=== PATIENT | female | born 1955 | race Caucasian/White ===

== ENCOUNTER → 2016-10-20 | Outpatient (CLI) | payer BC, OTHER ==
[~2016-10-20] MED LIST: LRT5 PO; METO50TA7 PO
== END | disposition home or self-care (01) ==
LOC: C.PAPS 17:20
PROVIDERS: ATTEND Obstetrics & Gynecology
DX: Z01.419 Encounter for gynecological examination (general) (routine) without abnormal findings (principal)

== ENCOUNTER → 2016-10-29 | Outpatient (CLI) | payer OTHER ==
--- NOTE | 2016-11-01 07:43 | MAMMOGRAPHY REPORT ---
BILATERAL DIGITAL SCREENING MAMMOGRAM TOMOSYNTHESIS WITH CAD: 10/29/2016 CLINICAL HISTORY: Routine screening. Patient has no complaints. TECHNIQUE: Breast tomosynthesis in addition to standard 2D mammography was performed. Current study was also evaluated with a Computer Aided Detection (CAD) system. COMPARISON: Comparison is made to exams dated: 10/24/2015 mammogram, 10/18/2014 mammogram, 10/12/2013 m ammogram, 09/29/2012 mammogram, 09/24/2011 mammogram, and 09/18/2010 mammogram - [facility] enter. BREAST COMPOSITION: There are scattered areas of fibroglandular density in both breasts. FINDINGS: No suspicious masses, calcifications, or areas of architectural distortion are noted in ei ther breast. There has been no significant interval change compared to prior exams. IMPRESSION: ACR BI-RADS CATEGORY 1: NEGATIVE There is no mammographic evidence of malignancy. A 1 year screening mammogram is recommended. The pa tient will receive written notification of the results. Approximately 10% of breast cancers are not detected with mammography. A negative mammographic report should not delay biopsy if a clinically suggestive mass is present. Ava Shen M.D. /:10/29/2016 15:13:12 Director Of Employee Development: Veronica Fowler [facility] letter sent: Normal 1/2 BI-RADS Code: ACR BI-RADS Category 1: Negative
== END | disposition home or self-care (01) ==
LOC: C.MAMM 11:45
PROVIDERS: ATTEND Obstetrics & Gynecology
DX: Z12.31 Encounter for screening mammogram for malignant neoplasm of breast (principal)

== ENCOUNTER → 2017-10-24 | Outpatient (CLI) | payer OTHER ==
[~2017-10-24] MED LIST changes: -METO50TA7 PO; +METO50TA8 PO
== END | disposition home or self-care (01) ==
LOC: C.PAPS 14:41
PROVIDERS: ATTEND Obstetrics & Gynecology
DX: Z12.4 Encounter for screening for malignant neoplasm of cervix (principal)

== ENCOUNTER → 2017-11-04 | Outpatient (CLI) | payer OTHER ==
--- NOTE | 2017-11-04 14:35 | MAMMOGRAPHY REPORT ---
BILATERAL DIGITAL SCREENING MAMMOGRAM TOMOSYNTHESIS WITH CAD: 11/04/2017 CLINICAL HISTORY: Routine screening. Patient has no complaints. TECHNIQUE: The study was acquired using full field digital technology and interpreted from soft copy. Breast tomosynthesis in addition to standard 2D mammography was performed. Current study was also ev aluated with a Computer Aided Detection (CAD) system. COMPARISON: Comparison is made to exams dated: 10/29/2016 mammogram, 10/24/2015 mammogram, 10/18/2014 m ammogram, 10/12/2013 mammogram, 09/29/2012 mammogram, and 09/24/2011 mammogram - [facility] enter. BREAST COMPOSITION: There are scattered areas of fibroglandular density in both breasts. FINDINGS: No suspicious masses, calcifications, or areas of architectural distortion are noted in either breast . There has been no significant interval change compared to prior exams. IMPRESSION: ACR BI-RADS CATEGORY 1: NEGATIVE There is no mammographic evidence of malignancy. A 1 year screening mammogram is recommended.( 019) The patient will receive written notification of the results. Some breast cancers are not detected with mammography. A negative mammographic report should not courtney y biopsy if a clinically suggestive mass is present. Ava Shen M.D. ah/:11/04/2017 12:42:31 Cloth Opener Hand: RT Mahsa(R)(M), [facility] letter sent: Normal 1/2 BI-RADS Code: ACR BI-RADS Category 1: Negative
== END | disposition home or self-care (01) ==
LOC: C.MAMM 11:31
PROVIDERS: ATTEND Obstetrics & Gynecology
DX: Z12.31 Encounter for screening mammogram for malignant neoplasm of breast (principal)

== ENCOUNTER 2019-02-02 09:44 | Inpatient (IN) ==
[2018-12-07 13:13] LABS: Basophils # (auto) 0.09 K/uL (0-0.2); Basophils % (auto) 1.3 %; Eosinophils # (auto) 0.24 K/uL (0-0.5); Eosinophils % (auto) 3.5 %; Hemoglobin 13.6 g/dL (12.0-16.0); Immature Granulocytes # (auto) 0.02 K/uL (0.00-0.02); Immature Granulocytes % (auto) 0.3 %; Lymphocytes # (auto) 2.21 K/uL (1.2-3.4); Lymphocytes % (auto) 32.6 %; Mean Corpuscular Hemoglobin 31.9 pg (25-34); Mean Corpuscular Hgb Conc 34.9 g/dL (32-36); Mean Corpuscular Volume 91.3 fL (80-100); Mean Platelet Volume 9.7 fL (7.4-10.4); Monocytes # (auto) 0.62 K/uL (0.11-0.59); Monocytes % (auto) 9.1 %; Neutrophils % (auto) 53.2 %; Platelet Count 264 K/uL (130-400); RDW Coefficient of Variation 13.2 % (11.5-14.5); RDW Standard Deviation 43.8 fL (36.4-46.3); Red Blood Count 4.27 M/uL (4.2-5.4); White Blood Count 6.78 K/uL (4.8-10.8)
[2018-12-07 13:24] LABS: Partial Thromboplastin Ratio 0.9; Partial Thromboplastin Time 23.7 Seconds (21.0-31.0); Prothrombin Time 10.3 Seconds (9.0-12.0)
--- NOTE | 2018-12-07 13:43 | XRay Report ---
XR chest Pre-admission PA/Lat CLINICAL HISTORY: 63 years-old Female presenting with preoperative assessment. TECHNIQUE: PA and lateral views of the chest were obtained. COMPARISON: 08/22/2018. FINDINGS: Cardiac silhouette top normal in size. Lungs and pleural spaces clear. Degenerative changes of the th oracic spine. Cholecystectomy clips noted. IMPRESSION: 1. No acute cardiopulmonary disease. Electronically signed by: Dwight Jones M.D. 12/07/2018 1:41 PM
--- NOTE | 2018-12-07 13:59 | Anesthesiology Consultation ---
Date of Service December 07, 2018 Assessment & Plan (1) Encounter for pre-operative examination: Chart Review Chart Review: Acceptable Risk for Surgery and Patient seen in Pre Admission Testing Consults Requested none Proposed Anesthesia Risk / Benefits Reviewed With: PT / POA / Parent / Guardian, Accepts Plan and Informed Consent Obtained History Surgery Operation Date: 02/02/19 07:00 Proposed Procedures p Right Total Knee Replacement - Jeyson Quevedo MD Height/Weight Height: 5 ft 3.5 in Weight: 77.1 kg Allergies Allergy/AdvReac Type Severity Reaction Status Date / Time No Known Drug Allergies Allergy Verified 12/06/18 13:29 Medications Home Medications Medication Instructions Recorded Confirmed Last Taken multivitamin tablet 1 tab PO QAM 08/23/18 12/06/18 Unknown metaxalone 800 mg tablet 800 mg PO HS #30 tab 11/01/18 12/06/18 Unknown aspirin 81 mg PO QAM 12/06/18 12/06/18 Unknown calcium carbonate-vitamin D3 1 tab PO BID 12/06/18 12/06/18 Unknown [Caltrate 600 plus D] diclofenac sodium 4 gm TOP BID 12/06/18 12/06/18 Unknown flaxseed oil 1,000 mg PO QAM 12/06/18 12/06/18 Unknown fluticasone propionate [Flonase 1 spray INTRANASAL DAILY PRN 12/06/18 12/06/18 Unknown Allergy Relief] indapamide 2.5 mg PO QAM 12/06/18 12/06/18 Unknown magnesium 500 mg PO BID 12/06/18 12/06/18 Unknown metoprolol succinate 50 mg PO QAM 12/06/18 12/06/18 Unknown thiamine HCl (vitamin B1) [Vitamin 100 mg PO QAM 12/06/18 12/06/18 Unknown B-1] Past Medical History Medical History Hypertension (Chronic) Hyperlipidemia (Chronic) "BORDERLINE ELEVATED" Degenerative disc disease History of depression Hx of endometriosis Osteoarthritis Hyperthyroidism HX Exercise / Class Metabolic Activity II 4-5 Yardwork/Stairs/Walk up hill Past Family History Family History Mother Brain cancer Aunt Breast cancer Father Brain cancer Lung cancer Diabetes Sister Diabetes Past Surgical History Surgical History History of colonoscopy History of tonsillectomy and adenoidectomy History of tooth extraction H/O exploratory laparotomy History of left oophorectomy Hx of cholecystectomy Past Anesthesia History No Hx of Anesthesia Complications and No Family Hx of Anesthesia Complications History of PONV No Hx of PONV and No Hx of Motion Sickness Social History Smoking Status: Never smoker Do You Dip or Chew Tobacco: No Hx Alcohol Use: Yes Alcohol type: beer and wine alcohol intake frequency: a few times a month Hx Substance Use: No substance use type: does not use Physical Exam Vital Signs Last Vital Signs Temp 36.8 C 12/07/18 12:40 Pulse 71 12/07/18 12:40 Resp 18 12/07/18 12:40 BP 125/84 12/07/18 12:40 Pulse Ox 98 12/07/18 12:40 ENMT Mouth: no dentition abnormality Thyromental Distance: > or= 3.5 Finger Breadths Mallampati Class: II Neck normal visual inspection Respiratory normal respiratory effort Auscultation: lungs clear to auscultation bilaterally Cardiovascular Rate/Rhythm: regular rate and regular rhythm Psychiatric Orientation: alert Testing Laboratory Results 12/07/18 12:50 PT 10.3 Seconds (9.0-12.0) 12/07/18 12:50 INR 1.0 (0.9-1.1) 12/07/18 12:50 APTT 23.7 Seconds (21.0-31.0) 12/07/18 12:50 Electrocardiogram Date: 12/07/18 Findings: + NSR @ (71) Chest X-Ray Date: 12/07/18 Findings: + NAD
[2018-12-07 16:40] LABS: BUN Creatinine Ratio 17.7 (10-20); Calcium 9.3 mg/dl (8.5-10.1); Creatinine Clr Calc Pharmacy 68.1 ml/min; Est GFR (African American) 85.7; Potassium 3.9 mmol/L (3.5-5.1)
--- NOTE | 2019-01-26 08:48 | History and Physical Report ---
DATE OF ADMISSION: 02/02/2019 CHIEF COMPLAINT: Persistent right knee pain, discomfort and swelling. HISTORY OF PRESENT ILLNESS: A 63-year-old female who has been referred to me by my partner Dr. Trammell for surgical treatment of her right knee. She had a long history of right knee pain, discomfort and swelling and recurrent effusions, which has gradually gotten worse over time. She has been through extensive conservative treatment including multiple aspirations and injections, which have become less successful over time. She has developed just more pain. Her knee gets swollen. It feels tight. The more she is up and on it, the more it swells and more painful it is. She has difficulty walking any significant distance and if she is pretty active, she pays for it for the next couple of days with swelling. The injection only helped for a couple days. PAST MEDICAL HISTORY: 1. Hypertension. 2. History of sleep apnea. 3. Hypothyroidism. 4. Low back pain/sciatica. PAST SURGICAL HISTORY: 1. Cholecystectomy. 2. Tumor resection/oophorectomy 1992. 3. Female reconstructive surgery in 1981. ALLERGIES: None. CURRENT MEDICINES: 1. Metoprolol 50 mg. 2. Maxolon ____ mg a day. 3. ____. 4. Calcium. 5. Diclofenac gel. 6. Magnesium. 7. CBD oil. 8. Aspirin 81 mg. 9. Indapamide 2.5 mg a day. 10. Multivitamin. SOCIAL HISTORY: A 63-year-old female who lives in [place]. Does not smoke. Two drinks per week. FAMILY HISTORY: Noncontributory. REVIEW OF HISTORY: Negative for diabetes, neurologic problems, vascular problems or bleeding disorders. Denies any chest pain or shortness of breath. No history of DVT or PE. PHYSICAL EXAMINATION: GENERAL: Reveals a healthy, pleasant middle-aged female. Looks to be in pretty good health. HEENT: Benign. NECK: Supple, no lymphadenopathy. LUNGS: Clear to auscultation. HEART: Regular rate and rhythm. ABDOMEN: Soft, nontender, nondistended. EXTREMITIES: Grossly neurovascularly intact except as follows: Examination of the right knee reveals a patient who walks with a bit of a limp. She has got a slight flexion contracture and a moderate to large knee effusion. Range of motion about 5-10 degrees show full extension to 100 degrees of flexion. No pain with hip motion. She is neurologically intact. X-RAYS: X-rays of the right knee were reviewed. Shows advanced right knee medial compartment DJD. She has got tricompartment disease, but most severe in the medial side. She has got complete loss of medial joint space. She has got osteophytes both medially and laterally. ASSESSMENT: A 63-year-old female with advanced right knee degenerative joint disease. She has failed conservative treatment and would like to have her right knee replaced. PLAN: We will take her to the operating room and do a right total knee replacement. The risks and benefits of this procedure were explained to the patient including but not limited to DVT, PE, , infection, neurological injury, vascular injury, bleeding problem, pain, limited range of motion, stiffness, failure to relieve symptoms, incomplete relief of symptoms, need for further surgery in future, fracture, leg length inequality, nerve palsy, etc. The patient understands and desires to proceed. Informed consent was obtained. We did talk to her about taking her metoprolol the morning of surgery. She stopped her Mobic 10 days preop. As far as discharge plans, she is planning to be discharged home using [facility] home health program. She has a and sister and friend, they are going to assist in her care as well.
[~2019-02-02 09:44] MED LIST changes: +ACETAMINOPHEN 500 MG TAB PO SCH; +BUPIVACAINE 0.5 % 5 MG/1 ML PF 10ML VIAL ONE; +BUPIVACAINE LIPOSOME/PF 266 MG, BUPIVACAINE/EPINEPHRINE 50 ML, SODIUM CHLORIDE 0.9% 30 ... INFIL SCH; +CEFAZOLIN 2000MG 2,000 MG/15 ML SYR IV SCH; +FAMOTIDINE 20 MG TAB PO SCH; +GABAPENTIN 600 MG DOSE PO SCH; +LR 500ML BOLUS IV SCH; +LR 60ML/HR IV SCH; -LRT5 PO; -METO50TA8 PO; +METOCLOPRAMIDE HCL 10 MG TABLET PO SCH; +SCOPOLAMINE 1.5 MG TDSY TD SCH; +TRANEXAMIC ACID 1,000 MG **IV Intra-op IV SCH
--- NOTE | 2019-02-02 10:43 | History & Physical Bridge Note ---
Date of Service February 02, 2019 History & Physical Bridge Note I have examined the patient, reviewed the History & Physical and in the interval since the performance of the History & Physical I have noted the following changes of clinical significance: no changes noted
[2019-02-02] MEDS ORDERED: fentaNYL citrate 100 MCG/2 ML VIAL ONE (11:10)
[2019-02-02] MEDS ORDERED: MIDAZOLAM HCL 1 MG/ML 2ML VIAL ONE ×2 (11:11→13:50)
[2019-02-02] MEDS ORDERED: ATROPINE SULFATE 0.1 MG/ML 10ML SYR IV PRN (11:57)
[2019-02-02] MEDS ORDERED: ePHEDrine sulfate 50 MG/ML AMP IV PRN (11:57)
[2019-02-02] MEDS ORDERED: fentaNYL citrate 100 MCG/2 ML VIAL IV PRN (11:57)
[2019-02-02] MEDS ORDERED: ONDANSETRON INJ 2 MG/ML 2 ML VIAL IV PRN ×2 (11:57→16:24)
[2019-02-02] MEDS ORDERED: BACITRACIN INJ 50,000 UNIT VIAL ONE (12:48)
[2019-02-02] MEDS ORDERED: SODIUM CHLORIDE 0.9% PF 50 ML VIAL ONE (12:48)
[2019-02-02] MEDS ORDERED: BUPIVACAINE LIPOSOME 1.3% 266 MG/20 ML VIAL ONE (12:48)
[2019-02-02] MEDS ORDERED: EPINEPHrine INJ 1 MG/ML AMP ONE (12:51)
[2019-02-02] MEDS ORDERED: BUPIVACAINE 0.25% 30 ML VIAL ONE (12:51)
--- NOTE | 2019-02-02 14:48 | Post Operative Brief Note ---
PG Immediate Post Op with CF Date of Surgery February 02, 2019 Pre & Post Diagnosis Operation Date: 02/02/19 12:30 Pre-Op Diagnosis: Right Knee Advanced Degenerative Joint Disease Post-Op Diagnosis: Right Knee Advanced Degenerative Joint Disease I identified the patient and participated in the time-out.: Yes Procedure Operation Date: 02/02/19 12:30 Actual Procedures p Right Total Knee Arthroplasty(Right) - Jeyson Quevedo MD Surgeon Jeyson Quevedo MD Pediatrics Physician Kaur, PAC Estimated Blood Loss 50 Findings Consistent with Post-Op Diagnosis Fluids 800 cc Specimens Specimen Description: A. Right Knee Bone and Tissue Drains Sky Catheter (A 16 [place] sky catheter was inserted by [place], without difficulty, clear yellow urine obtained, output to be monitored by Anesthesia.) Anesthesia Type Spinal MAC Complications none Disposition Accompanied Patient To Recovery: No Disposition: Recovery Room
--- NOTE | 2019-02-02 15:43 | XRay Report ---
XR knee RT 1 or 2V routine CLINICAL HISTORY: Postop knee arthroplasty COMPARISON: 01/02/2018 DISCUSSION: There are postsurgical changes of a total right knee arthroplasty and patellar resurfacin g. There are overlying skin allegra. There is air present within the soft tissues consistent with rec ent surgery. The femoral tibial components appear well seated. IMPRESSION: Postsurgical changes of a total right knee arthroplasty. Electronically signed by: Kostas Mora M.D. 02/02/2019 3:42 PM
--- NOTE | 2019-02-02 15:45 | Anesthesiology Progress Note ---
Date of Service February 02, 2019 Anesthesia Post Procedure Vital Signs Vital Signs: Temp Pulse Pulse Resp BP Pulse Ox 02/02/19 15:30 74 14 121/70 97 02/02/19 15:20 77 18 126/70 97 02/02/19 15:10 75 14 129/73 97 02/02/19 15:00 74 20 118/68 96 02/02/19 14:53 97.0 F L 80 14 130/72 91 02/02/19 10:13 98.1 F 79 20 155/90 H 98 Pain Intensity Right Knee: Pain Intensity: 0 Transfer of Care Handoff Completed per policy Notes Mental Status: alert / awake / arousable and participated in evaluation Patient Amnestic to Procedure: Yes Nausea / Vomiting: adequately controlled Pain: adequately controlled Airway Patency, RR, SpO2: stable & adequate BP & HR: stable & adequate Hydration State: stable & adequate Neuraxial Anesthesia: was administered and sensory block is resolving Anesthetic Complications: no major complications apparent and Pt Satisfied with anesthetic care
[2019-02-02] MEDS ORDERED: ALUMINUM/MAGNESIUM SUSP 30 ML UDC PO PRN (16:24)
[2019-02-02] MEDS ORDERED: FLUTICASONE PROPIONATE NA SPR 16 GM BTL NAE PRN (16:24)
[2019-02-02] MEDS ORDERED: NALOXONE HCL 0.4 MG/1 ML VIAL/CARP IV PRN (16:24)
[2019-02-02] MEDS ORDERED: HYDROmorphone INJ 0.5 MG/0.5 ML SYR IV PRN (16:24)
[2019-02-02] MEDS ORDERED: MAGNESIUM HYDROXIDE SUSP 30 ML UDC PO PRN (16:24)
[2019-02-02] MEDS ORDERED: BISACODYL 10 MG SUPP PR PRN (16:24)
[2019-02-02] MEDS ORDERED: METOCLOPRAMIDE HCL INJ 5 MG/ML 2 ML VIAL IV PRN (16:24)
[2019-02-02] MEDS: SODIUM CHLORIDE 0.9% 1000ML 1,000 ML IV SCH (16:52)
--- NOTE | 2019-02-02 17:35 | Operative Report ---
Post Operative Report Pre & Post Diagnosis Operation Date: 02/02/19 12:30 Pre-Op Diagnosis: Right Knee Advanced Degenerative Joint Disease Post-Op Diagnosis: Right Knee Advanced Degenerative Joint Disease I identified the patient and participated in the time-out.: Yes Procedure Operation Date: 02/02/19 12:30 Actual Procedures p Right Total Knee Arthroplasty(Right) - Jeyson Quevedo MD Surgeon Jeyson Quevedo MD Sensor Technician Kaur, PAC Estimated Blood Loss 50 Findings Consistent with Post-Op Diagnosis Operative findings revealed advanced right knee DJD. She had grade 4 [id number] disease in all 3 compartments most severe in the medial side. She had eburnation of the medial femoral condyle and lateral femoral condyle. Large knee joint effusion. She had osteophytes in all 3 compartments. Fluids 800 cc Specimens Right knee sent for pathology. Anesthesia Type Spinal MAC Complications none Disposition Accompanied Patient To Recovery: No Disposition: Recovery Room Indications Patient is a 63-year-old female with a long history of right knee pain discomfort the describes gotten worse over time. She been treated by my partner Dr. Trammell for quite some time and this it became less successful over time. X- rays have shown advanced DJD. She like to proceed with surgical treatment. Description of Procedure Operative implants consisted of: 1. Biomet Vanguard size 65 right posterior bifemoral component. 2. Biomet Vanguard size 67 tibial tray. 3. 10 mm posterior stabilized polyethylene insert. 4. 28 x 8 all poly-patella. Patient was taken to the operating room identified and placed in the operating table in supine position. A spinal anesthetic had been implemented in the holding area along with an abductor canal block. A Dawson catheter was placed in sterile fashion. Right thigh tourniquet was then placed. All contact areas were meticulously padded. The right lower extremity was then prepped and draped in usual sterile fashion. The right leg was elevated and exsanguinated use of an Esmarch interspace at 300 mmHg. An anterior approach to the right knee was then performed to a longitudinal incision centered over the patella. Sharp dissection was Through the subcutaneous tissue down below the extensor mechanism. A medial parapatellar arthrotomy incision was made. Some subperiosteal dissection was carried out medially. The fat pad was resected from beneath patella tendon. The patella was subluxated laterally. The lateral patellofemoral ligament was released. The osteophytes taken off the distal femur. The ACL PCL were then released from the distal femur and the tibia subluxated anteriorly. The external tibial alignment jig was then placed in the interface of tibia and adjusted 16 mm medially. The proximal tibial cut was made to remove about millimeter bone from the most efficient aspect of the medial tibial plateau. Some osteophytes were taken off medial and posterior medially. The tibia was then sized to a size 67. Attention drawn the femur. The distal femur was entered with a sharp drill. The intramedullary canal was suction. A right a 5 degree valgus cutting guide was placed. This femoral cutting block was pinned in place. Distal femoral cut was made to take an additional 3 mm of bone off the distal femur. Femur was then sized to a size 65. We did down size this slightly. The AP cutting block was pinned parallel to the epicondylar axis which was 5 degrees of external rotation. The anterior cut, and anterior chamfer, posterior cut, posterior chamfer cuts were made. Box cutting guide was placed and adjusted slightly lateral and the box cut was made. The knee was flexed. The remnants of the medial lateral menisci were excised. The osteophytes were taken off the posterior aspect of the femur. A trial femoral component was placed. The tibial tray was pinned in maximum external rotation and the drill and stem punch were used to create the defect in the proximal tip for the tibial tray. The knee was then trialed the 10 mm insert fit most appropriately. Attention down the patella. The patella was cleaned of all soft tissues. Patella thickness measured 21 mm in thickness was cut down to 13 but was sized to a size 28 patella. The locals were drilled for the 28 patella. The lateral osteophyte was removed. Patella button was placed. Knee was taken through range of motion patella tracked nicely with no thumbs test. Attention turned to placing the permanent components. All trial components were removed. A bone plug was placed in the disc femur limit blood loss put a double batch [place]os G cement was mixed. A Biomet Vanguard size 65 right posterior bifemoral component, size 67 tibial tray, 10 mm posterior bite polyethylene insert, and a 28 x 8 all poly-patella were then cemented into place. All extraneous cement was removed. The knee was brought out in full extension until the cement hardened. Final cement check was then performed. The pericapsular tissues were injected with total of 100 cc of combination of 20 cc of Exparel, 30 cc of normal saline, 50 cc of quarter percent Marcaine with epinephrine. Patient did receive 1 g of tranexamic acid. The tendon was then let down for tourniquet time 56 minutes. Hemostasis should use electrocautery. The wounds once again irrigated. Extensor macros then closed with combination 1 PDS suture and #1 Vicryl suture in [id number] fashion with extensive medical checked and found to be intact the subtenons tissue then closed with 2 Dexon suture in a buried interrupted fashion. Skin was closed skin allegra. Leg was then cleaned dried a sterile dressing was Xeroform for 4 sterile cast padding Ru bandage were applied. Patient then transferred to the recovery room in stable condition. Patient tolerated she well no comp case but only sponge counts are correct at the end the operation. I attest to the content of the Intraoperative Record and any orders documented therein. Any exceptions are noted below.
[2019-02-02] MEDS: ASCORBIC ACID 500 MG TAB PO SCH (18:55)
[2019-02-02] MEDS: KETOROLAC 30 MG/ML VIAL IV SCH (18:55)
[2019-02-02] MEDS: FERROUS GLUCONATE 324 MG TAB PO SCH (18:55)
[2019-02-02] MEDS: CHECK SCOPOLAMINE PATCH PLACEMENT SCH (18:55)
[2019-02-02] MEDS: OXYCODONE HCL IR 5 MG TAB (IMMEDIATE RELEASE) PO PRN (20:28)
[2019-02-02] MEDS: METAXALONE 800 MG TABLET PO SCH (20:29)
[2019-02-02] MEDS: TAPENTADOL HCL ER 50 MG TABCR PO SCH (20:29)
[2019-02-02] MEDS: ASPIRIN 81 MG ECTAB PO SCH (20:29)
[2019-02-02] MEDS: CEFAZOLIN 1000MG 1,000 MG/7.5 ML SYR IV SCH (20:29)
[2019-02-02] MEDS: DOCUSATE SODIUM 100 MG CAP PO SCH (20:30)
[2019-02-02] MEDS: CALCIUM 600MG + VIT D 400 IU TAB PO SCH (20:30)
[2019-02-02] MEDS: MAGNESIUM OXIDE 400 MG TAB PO SCH (20:30)
[2019-02-02] MEDS: DICLOFENAC SOD 1% GEL 100 GM TUBE EXT SCH (20:31)
[2019-02-02] MEDS: SENNA 8.6 MG TAB PO SCH (20:31)
[2019-02-02] MEDS: ACETAMINOPHEN 500 MG TAB PO SCH (20:31)
[2019-02-02] MEDS ORDERED: TRANEXAMIC ACID 1,000 MG in 0.9 % SODIUM CHLORIDE 100 ML IV SCH (21:00)
[2019-02-03] MEDS: KETOROLAC 30 MG/ML VIAL IV SCH ×4 (00:04→17:58)
[2019-02-03] MEDS: CHECK SCOPOLAMINE PATCH PLACEMENT SCH (00:05)
[2019-02-03] MEDS: SODIUM CHLORIDE 0.9% 1000ML 1,000 ML IV SCH (03:21)
[2019-02-03] MEDS: CEFAZOLIN 1000MG 1,000 MG/7.5 ML SYR IV SCH (05:28)
[2019-02-03] MEDS: ACETAMINOPHEN 500 MG TAB PO SCH ×3 (05:29→21:26)
[2019-02-03 05:40] LABS: Hematocrit (blood only) 30.6 % (37-47); Hemoglobin 10.4 g/dL (12.0-16.0); Mean Corpuscular Hemoglobin 31.3 pg (25-34); Mean Corpuscular Volume 92.2 fL (80-100); Mean Platelet Volume 9.7 fL (7.4-10.4); Platelet Count 190 K/uL (130-400); RDW Coefficient of Variation 13.7 % (11.5-14.5); RDW Standard Deviation 45.8 fL (36.4-46.3); Red Blood Count 3.32 M/uL (4.2-5.4); White Blood Count 9.02 K/uL (4.8-10.8)
[2019-02-03 06:22] LABS: BUN Creatinine Ratio 20.6 (10-20); Creatinine Clr Calc Pharmacy 66.6 ml/min; Est GFR (African American) 83.3; Est GFR (Non-African American) 71.9
--- NOTE | 2019-02-03 08:22 | Progress Note ---
DATE: 02/03/2019 SUBJECTIVE: A 63-year-old female postoperative day 1 from a right knee replacement. She is doing well. Pain is controlled. She had pretty good night. No chest pain or shortness of breath. Not feeling dizzy or lightheaded. OBJECTIVE: VITAL SIGNS: Temperature is 36.8. Vital signs stable. GENERAL: Shows a pleasant, middle-aged female. She is sitting up on bed, looks quite comfortable. EXTREMITIES: Examination of the right knee reveals the leg to be well aligned. Dressing is clean, dry and intact. She can dorsiflex and plantarflex her foot appropriately. She is neurologically intact. LABORATORY DATA: Hemoglobin is 10.4. Hematocrit 30.6. Electrolytes are stable. ASSESSMENT: A 63-year-old female postop day 1 from right knee replacement, doing pretty well. Pain is controlled. She is mildly anemic, but asymptomatic. PLAN: 1. DVT prophylaxis including thigh-high TEDs, SCDs, and aspirin twice a day. 2. PT/OT. Weight bear as tolerated. Right total knee protocol. 3. Pain control, doing well with current pain regimen. 4. Anemia. We will continue iron supplementation. She is asymptomatic. 5. Disposition: Plan to discharge to home with some home health once adequately recovered.
[2019-02-03] MEDS: CALCIUM 600MG + VIT D 400 IU TAB PO SCH ×2 (08:34→20:51)
[2019-02-03] MEDS: DOCUSATE SODIUM 100 MG CAP PO SCH ×2 (08:34→20:51)
[2019-02-03] MEDS: FERROUS GLUCONATE 324 MG TAB PO SCH ×2 (08:34→17:58)
[2019-02-03] MEDS: TAPENTADOL HCL ER 50 MG TABCR PO SCH ×2 (08:34→20:50)
[2019-02-03] MEDS: INDAPAMIDE 1.25 MG TAB PO SCH (08:35)
[2019-02-03] MEDS: MULTIVITAMIN TAB PO SCH (08:35)
[2019-02-03] MEDS: THIAMINE HCL 100 MG TAB PO SCH (08:35)
[2019-02-03] MEDS: ASCORBIC ACID 500 MG TAB PO SCH ×2 (08:35→17:58)
[2019-02-03] MEDS: METOPROLOL SUCC 50MG EXT REL TAB PO SCH (08:35)
[2019-02-03] MEDS: MAGNESIUM OXIDE 400 MG TAB PO SCH ×2 (08:36→20:51)
[2019-02-03] MEDS: ASPIRIN 81 MG ECTAB PO SCH ×2 (08:36→20:51)
[2019-02-03] MEDS: DICLOFENAC SOD 1% GEL 100 GM TUBE EXT SCH ×2 (08:36→20:52)
[2019-02-03] MEDS ORDERED: MULTIVITAMIN TAB PO SCH (09:00)
[2019-02-03] MEDS ORDERED: NON-FORMULARY MEDICATION (Flaxseed Oil 1,000 MG) PO SCH (09:00)
[2019-02-03] MEDS: OXYCODONE HCL IR 5 MG TAB (IMMEDIATE RELEASE) PO PRN ×2 (12:18→18:06)
[2019-02-03] MEDS: METAXALONE 800 MG TABLET PO SCH (20:51)
[2019-02-03] MEDS: SENNA 8.6 MG TAB PO SCH (20:52)
[2019-02-04] MEDS: KETOROLAC 30 MG/ML VIAL IV SCH ×2 (00:04→06:19)
[2019-02-04] MEDS: ACETAMINOPHEN 500 MG TAB PO SCH (06:19)
[2019-02-04] MEDS: OXYCODONE HCL IR 5 MG TAB (IMMEDIATE RELEASE) PO PRN (06:22)
[2019-02-04] MEDS: FERROUS GLUCONATE 324 MG TAB PO SCH (08:27)
[2019-02-04] MEDS: CALCIUM 600MG + VIT D 400 IU TAB PO SCH (08:28)
[2019-02-04] MEDS: DOCUSATE SODIUM 100 MG CAP PO SCH (08:28)
[2019-02-04] MEDS: THIAMINE HCL 100 MG TAB PO SCH (08:28)
[2019-02-04] MEDS: MULTIVITAMIN TAB PO SCH (08:28)
[2019-02-04] MEDS: MAGNESIUM OXIDE 400 MG TAB PO SCH (08:28)
[2019-02-04] MEDS: DICLOFENAC SOD 1% GEL 100 GM TUBE EXT SCH (08:28)
[2019-02-04] MEDS: ASCORBIC ACID 500 MG TAB PO SCH (08:28)
[2019-02-04] MEDS: METOPROLOL SUCC 50MG EXT REL TAB PO SCH (09:03)
[2019-02-04] MEDS: TAPENTADOL HCL ER 50 MG TABCR PO SCH (09:03)
[2019-02-04] MEDS: INDAPAMIDE 1.25 MG TAB PO SCH (09:04)
[2019-02-04] MEDS: ASPIRIN 81 MG ECTAB PO SCH (09:04)
--- NOTE | 2019-02-04 09:24 | Progress Note ---
DATE: 02/04/2019 SUBJECTIVE: A 63-year-old female postop day 2 from a right knee replacement. She is doing pretty well. Pretty painful after therapy yesterday, but doing better this morning. No chest pain or shortness of breath. Not feeling dizzy or lightheaded. OBJECTIVE: VITAL SIGNS: Temperature 36.3. Vital signs stable. GENERAL: Shows a pleasant, middle-aged female. She just got back in the bed from being in the bathroom. EXTREMITIES: Examination of the right leg reveals the leg to be well aligned. Her incision is clean, dry and intact. Fairly mild swelling. No drainage. Calf is soft and supple. ASSESSMENT: A 63-year-old female postop day 2 from a right knee replacement, doing pretty well. Pain is controlled. PLAN: 1. DVT prophylaxis including thigh-high TEDs, SCDs, and aspirin twice a day. 2. PT/OT. Weight bear as tolerated. Right total knee protocol. 3. Pain control, doing pretty well with current pain regimen. 4. Disposition. Plan to discharge her home with some home health later today.
--- NOTE | 2019-02-07 12:13 | Discharge Summary ---
DATE OF ADMISSION: 02/02/2019 DATE OF DISCHARGE: 02/04/2019 ADMITTING PHYSICIAN AND SURGEON: Dr. Jeyson Quevedo. ADMITTING DIAGNOSIS: Right knee degenerative joint disease. SURGERY PERFORMED: Right total knee arthroplasty. SECONDARY DIAGNOSES: Hypertension, sleep apnea, hypothyroidism, low back pain, sciatica. CONSULTS: None obtained. HISTORY AND PHYSICAL EXAMINATION: Well documented in the patient's chart. HOSPITAL COURSE: The patient was admitted on 02/02/2019, underwent a total knee arthroplasty, tolerated the procedure well. There were no complications. She was transferred to the PACU postoperatively and later to the orthopedic floor for further care. She was given Ancef for antibiotic prophylaxis, TEZ stockings, SCDs and aspirin for DVT prophylaxis. Hemoglobin, hematocrit and vital signs were monitored during her hospital stay and remained stable, did not require any blood transfusions. There were no complications. By postoperative day 2, she was tolerating a regular diet, pain was controlled with oral pain medicine. She was participating in physical therapy. On postop day 2, she was discharged home, set up with home health services, given printed discharge instructions as well as new prescriptions for extra strength Tylenol, aspirin, iron supplement and oxycodone. Continue her home medications with the exception of her home dose of aspirin and continue physical therapy, weightbearing as tolerated, TEZ stockings. Follow up approximately 2 weeks postop or sooner if there are any problems or concerns.
== END 2019-02-04 10:58 | disposition home health service (06) | DRG 470 ==
LOC: ASU 09:44 → 3E 14:53